=== PATIENT | female | born 1955 | race Caucasian/White ===

== ENCOUNTER 2018-01-10 13:15 | Observation (INO) ==
[2018-01-10 13:57] LABS: Bilirubin,Urine Negative (Negative); Blood,Urine Negative (Negative); Clarity,Urine Clear (Clear); Color,Urine Yellow (Yellow); Glucose,Urine (UA) 250 mg/dL (Normal); Ketones,Urine Negative (Negative); Leukocyte Esterase,Urine Negative (Negative); Nitrite,Urine Negative (Negative); PH,Urine 6.5 pH Units (5.0-8.0); Protein,Urine Negative (Neg-Trace); Specific Gravity,Urine 1.006 (1.010-1.025); Urobilinogen,Urine Normal (Normal)
[2018-01-10 14:56] LABS: Basophils % 0.3 %; Eosinophils % 0.4 %; Hematocrit 41.3 % (35.3-44.9); Immature Granulocytes % 0.4 % (0-4); Lymphocytes # 2.5 K/mcL (0.6-4.6); Lymphocytes % 22.9 %; Mean Corpuscular HGB Conc 33.9 g/dL (31.6-35.5); Mean Corpuscular Hemoglobin 30.6 pg (28.0-33.3); Mean Corpuscular Volume 90.4 fL (83.0-100.0); Mean Platelet Volume 9.3 fL (9.4-12.4); Monocytes # 0.7 K/mcL (0.0-1.3); Monocytes % 6.9 %; Neutrophils # 7.4 K/mcL (1.6-8.9); Platelet Count 248 K/mcL (140-400); Red Blood Count 4.57 M/mcL (3.82-4.97); Red Cell Distribution Width 12.5 % (11.5-14.5); Segmented Neutrophils % 69.1 %
[2018-01-10] MEDS ORDERED: *HR* FentaNYL (PF) 100 MCG/2 ML VIAL IVP ONE ×2 (15:19→20:36)
[2018-01-10 15:22] LABS: Troponin I < 0.03 ng/mL (< 0.04)
--- NOTE | 2018-01-10 15:30 | Emergency Department Note ---
Disposition Clinical Impression: Acute cholecystitis Abdominal pain Qualifiers: Abdominal location: right upper quadrant Qualified Code(s): R10.11 - Right upper quadrant pain Disposition: Admitted As Inpatient Condition: Fair Referrals: Anselmo Borrero DO [Primary Care Provider] - Forms: ED Satisfaction Letter, Work/School Release Time of Disposition: 06:20 General Adult HPI - General Chief complaint: ED Abdominal Pain Stated complaint: back pain, vomiting Time Seen by Provider: 01/10/18 13:38 Source: patient Limitations: no limitations Nursing Notes Reviewed: Yes Vital Signs Reviewed: Yes - History of Present Illness HPI Narrative: Patient is a 62 yo white female who presents to the ED with complaints of nausea , vomiting, and right upper abdominal pain. She states the pain began on Wednesday and has remained intermittently sharp but dull otherwise. The pain radiates to her right shoulder blade. She notes she had similar pain last week which resolved after a few hours. The pain has no aggravating factors and has not resolved through the use of ibuprofen or tylenol. She otherwise admits intermittent chest pain, trouble breathing , headache and constipation. She admits the chest pain and shortness of breath feels similar to anxiety due to the pain and do not feel similar to her episode of ARDS or A. fib. She denies any fever, chills, dysuria, hematuria, diarrhea. Pain Scale: 8 - Related Data Home Medications Medication Instructions Recorded Confirmed FLUoxetine HCl [PROzac] 20 mg PO DAILY 01/15/16 01/10/18 Ferrous Sulfate 325 mg PO DAILY 01/15/16 01/10/18 L. Acidophilus/Pectin, [place] 1 cap PO DAILY 01/15/16 01/10/18 [Acidophilus Probiotic Capsule] Pantoprazole Sodium [Protonix] 40 mg PO DAILY 01/15/16 01/10/18 Aspirin [Lo-Dose Aspirin EC] 81 mg PO DAILY 01/10/18 01/10/18 Losartan Potassium [Cozaar] 50 mg PO DAILY 01/10/18 01/10/18 dilTIAZem HCl [Diltiazem 24Hr Cd] 120 mg PO DAILY 01/10/18 01/10/18 Allergies Allergy/AdvReac Type Severity Reaction Status Date / Time No Known Allergies Allergy Verified 01/10/18 13:25 Constitutional: Denies: fever, chills, weakness, weight change Eyes: Reports: eye pain, vision change Cardiovascular: Reports: chest pain. Denies: palpitations, dyspnea on exertion , edema, syncope Respiratory: Reports: as per HPI. Denies: cough, dyspnea, wheezes, hemoptysis, stridor Gastrointestinal: Reports: abdominal pain, nausea, vomiting, constipation. Denies: diarrhea, hematemesis, melena, hematochezia Genitourinary: Denies: dysuria, frequency, hematuria, discharge Musculoskeletal: Reports: back pain. Denies: arthralgia, myalgia Integumentary: Denies: rash, abrasion, lesions Neurological: Reports: headache, paresthesias. Denies: weakness, numbness, vertigo Psychiatric: Reports: anxiety, homicidal thoughts. Denies: depression, suicidal thoughts Endocrine: Denies: fatigue Past Medical History - Past Medical History Source: patient Medical history: Reports: COPD, coronary artery disease, DVT, GERD, hypertension Surgical history: Reports: other Psychiatric history: Reports: anxiety, depression - Social History Smoking Status: Never smoker Alcohol use: Reports: rarely Drug use: Reports: none Physical Exam - General Limitations: no limitations General appearance: alert, anxious - Head Head exam: atraumatic, normocephalic, normal inspection - Eye Eye exam: Present: normal appearance, PERRL, EOMI - ENT ENT exam: normal exam, mucous membranes moist - Chest Chest inspection: Present: normal inspection. Absent: tenderness, rash - Respiratory Respiratory exam: Present: normal lung sounds bilaterally. Absent: respiratory distress, wheezes, stridor - Cardiovascular Cardiovascular exam: Present: regular rate, normal rhythm, normal heart sounds - Abdominal Exam Abdominal exam: Present: soft, tenderness, normal bowel sounds, Moreno's sign. Absent: distention, guarding, rebound Abdominal tenderness: Present: RUQ - Extremities Exam Extremities exam: Present: normal inspection. Absent: pedal edema - Back Exam Back exam: Present: normal inspection (Weakness) - Neurological Exam Neurological exam: Present: alert, oriented X3 ( he underwent) - Psychiatric Psychiatric exam: Present: normal affect, normal mood, anxious - Skin Skin exam: Present: warm, dry, intact. Absent: rash Course Course Narrative: All patient's initial presentation of chest pain, shortness of breath, abdominal pain, nausea and therefore CBC, lipase, BMP, liver panel, UA and chest x-ray were ordered. - Reevaluation(s) Reevaluation #1: Discussed test results with patient including CBC, BMP, SEIS[employer] PROSPECTING OBSERVER HELPER, lipase, troponin, and BNP. Awaiting formal ultrasound. Time: 16:20 Reevaluation #2: spoke with general surgeon, Dr. Lam who accepts the patient. Time: 06:20 Vital Signs Temperature 98.1 F 01/10/18 13:22 Pulse Rate 68 01/10/18 13:22 Respiratory Rate 18 01/10/18 13:22 Blood Pressure 162/77 01/10/18 13:22 O2 Sat by Pulse Oximetry 97 01/10/18 13:22 Temperature 98.1 F 01/10/18 13:22 Pulse Rate 70 01/10/18 18:56 Respiratory Rate 20 01/10/18 18:56 Blood Pressure 193/102 01/10/18 18:56 O2 Sat by Pulse Oximetry 97 01/10/18 18:56 Oxygen Delivery Oxygen Delivery Room Air Medical Decision Making - MDM Narrative Medical decision making narrative: Patient is a 62-year-old woman initially presented with nausea vomiting and right upper quadrant pain with radiation to the right shoulder blade for the past few days. She also admitted some chest pain and shortness of breath which she attributed to anxiety. CBC, lipase, troponin, BNP were unremarkable. BMP revealed elevated alkaline phosphatase at 111. Chest x-ray was unremarkable as well as EKG. Initial right upper quadrant ultrasound revealed cholelithiasis and mild gallbladder wall thickening without evidence of pericholecystic fluid. CT abdomen with IV contrast was ordered which revealed cholelithiasis and pericholecystic fluid consistent with acute cholecystitis. Dr. Lam, general surgery agrees to admit the patient. - Medical Records Medical records reviewed: Yes I reviewed the patient's medical records. - Lab Data Lab results reviewed: Yes I reviewed the patient's lab results. Result diagrams: 01/10/18 14:41 01/10/18 14:41 Lab Results 01/10/18 01/10/18 01/10/18 Range/Units 13:37 14:41 14:41 WBC 10.7 (4.3-11.1) K/mcL RBC 4.57 (3.82-4.97) M/mcL Hgb 14.0 (11.5-15.4) g/dL Hct 41.3 (35.3-44.9) % MCV 90.4 (83.0-100.0) fL MCH 30.6 (28.0-33.3) pg MCHC 33.9 (31.6-35.5) g/dL RDW 12.5 (11.5-14.5) % Plt Count 248 (140-400) K/mcL MPV 9.3 L (9.4-12.4) fL Immature Gran % 0.4 (0-4) % Seg Neutrophils % 69.1 % Lymphocytes % 22.9 % Monocytes % 6.9 % Eosinophils % 0.4 % Basophils % 0.3 % Neutrophils # 7.4 (1.6-8.9) K/mcL Lymphocytes # 2.5 (0.6-4.6) K/mcL Monocytes # 0.7 (0.0-1.3) K/mcL Eosinophils # 0.0 (0.0-0.6) K/mcL Basophils # 0.0 (0.0-0.2) K/mcL Sodium 136 (136-145) mEq/L Potassium 3.9 (3.5-5.1) mEq/L Chloride 103 (98-107) mEq/L Carbon Dioxide 25 (23-29) mEq/L BUN 14 (8-23) mg/dL Creatinine 0.93 (0.60-1.20) mg/dL Est GFR ( Amer) > 60 (> 60) Est GFR (Non-Af Amer) > 60 (> 60) BUN/Creatinine Ratio 15 (6-26) Glucose 138 H (70-105) mg/dL Calculated Osmolality 285 (280-300) Lactic Acid (0.5-2.2) mmol/L Calcium 9.4 (8.6-10.3) mg/dL Total Bilirubin 0.5 (0.3-1.0) mg/dL Direct Bilirubin 0.1 (0.0-0.2) mg/dL Indirect Bilirubin 0.4 (0.0-1.2) mg/dL AST 11 L (13-39) Units/L ALT 10 (7-52) Units/L Alkaline Phosphatase 111 H (34-104) Units/L Troponin I < 0.03 (< 0.04) ng/mL B-Natriuretic Peptide (Less than 100) pg/mL Serum Total Protein 7.7 (6.4-8.9) g/dL Albumin 4.1 (3.5-5.7) g/dL Globulin 3.6 H (2.4-3.5) g/dL Albumin/Globulin Ratio 1.1 (1.1-2.2) Lipase 24 (11-82) Units/L Urine Color Yellow (Yellow) Urine Clarity Clear (Clear) Urine pH 6.5 (5.0-8.0) pH Units Ur Specific [place] 1.006 L (1.010-1.025) Urine Protein Negative (Neg-Trace) mg/dL Urine Glucose (UA) 250 H (Normal) mg/dL Urine Ketones Negative (Negative) mg/dL Urine Blood Negative (Negative) Urine Nitrite Negative (Negative) Urine Bilirubin Negative (Negative) Urine Urobilinogen Normal (Normal) mg/dL Ur Leukocyte Esterase Negative (Negative) Ur Culture Indicated? NO (NO) 01/10/18 01/10/18 Range/Units 14:41 14:41 WBC (4.3-11.1) K/mcL RBC (3.82-4.97) M/mcL Hgb (11.5-15.4) g/dL Hct (35.3-44.9) % MCV (83.0-100.0) fL MCH (28.0-33.3) pg MCHC (31.6-35.5) g/dL RDW (11.5-14.5) % Plt Count (140-400) K/mcL MPV (9.4-12.4) fL Immature Gran % (0-4) % Seg Neutrophils % % Lymphocytes % % Monocytes % % Eosinophils % % Basophils % % Neutrophils # (1.6-8.9) K/mcL Lymphocytes # (0.6-4.6) K/mcL Monocytes # (0.0-1.3) K/mcL Eosinophils # (0.0-0.6) K/mcL Basophils # (0.0-0.2) K/mcL Sodium (136-145) mEq/L Potassium (3.5-5.1) mEq/L Chloride (98-107) mEq/L Carbon Dioxide (23-29) mEq/L BUN (8-23) mg/dL Creatinine (0.60-1.20) mg/dL Est GFR ( Amer) (> 60) Est GFR (Non-Af Amer) (> 60) BUN/Creatinine Ratio (6-26) Glucose (70-105) mg/dL Calculated Osmolality (280-300) Lactic Acid 1.0 (0.5-2.2) mmol/L Calcium (8.6-10.3) mg/dL Total Bilirubin (0.3-1.0) mg/dL Direct Bilirubin (0.0-0.2) mg/dL Indirect Bilirubin (0.0-1.2) mg/dL AST (13-39) Units/L ALT (7-52) Units/L Alkaline Phosphatase (34-104) Units/L Troponin I (< 0.04) ng/mL B-Natriuretic Peptide 43 (Less than 100) pg/mL Serum Total Protein (6.4-8.9) g/dL Albumin (3.5-5.7) g/dL Globulin (2.4-3.5) g/dL Albumin/Globulin Ratio (1.1-2.2) Lipase (11-82) Units/L Urine Color (Yellow) Urine Clarity (Clear) Urine pH (5.0-8.0) pH Units Ur Specific [place] (1.010-1.025) Urine Protein (Neg-Trace) mg/dL Urine Glucose (UA) (Normal) mg/dL Urine Ketones (Negative) mg/dL Urine Blood (Negative) Urine Nitrite (Negative) Urine Bilirubin (Negative) Urine Urobilinogen (Normal) mg/dL Ur Leukocyte Esterase (Negative) Ur Culture Indicated? (NO) - Radiology Data Radiology results reviewed: Yes I reviewed the patient's radiology results. Chest X-Ray 01/10/18 13:26 IMPRESSION: No acute cardiopulmonary disease. D/ / 01/10/2018 14:18:43 Tan Espinosa MD / [facility] Interpreting Provider: Tan Espinosa MD Gallbladder Ultrasound 01/10/18 16:11 IMPRESSION: Cholelithiasis with mild thickening of the gallbladder wall. Consider HIDA scan for further evaluation. D/ / Brett Quintero MD / Brett Quintero MD Interpreting Provider: Brett Quintero MD Chest X-Ray 01/10/18 13:26 IMPRESSION: No acute cardiopulmonary disease. D/ / 01/10/2018 14:18:43 Tan Espinosa MD / [facility] Interpreting Provider: Tan Espinosa MD Gallbladder Ultrasound 01/10/18 16:11 IMPRESSION: Cholelithiasis with mild thickening of the gallbladder wall. Consider HIDA scan for further evaluation. D/ / Brett Quintero MD / Brett Quintero MD Interpreting Provider: Brett Quintero MD Abdomen/Pelvis CT 01/10/18 17:53 IMPRESSION: CT findings compatible with acute cholecystitis. D/ / Brett Quintero MD / Brett Quintero MD Interpreting Provider: Brett Quintero MD - EKG Data EKG #1 EKG attestation: Yes I reviewed and interpreted this EKG. EKG results narrative: Heart rate 64 bpm, [place] interval 125, QRS 89, QT 410. Normal axis. Sinus rhythm no acute ST elevations or depressions. When compared to previous from 10/13/16 no significant changes.
[2018-01-10 15:36] LABS: Alanine Aminotransferase 10 Units/L (7-52); Albumin 4.1 g/dL (3.5-5.7); Albumin/Globulin Ratio 1.1 (1.1-2.2); Alkaline Phosphatase 111 Units/L (34-104); Aspartate Amino Transferase 11 Units/L (13-39); BUN/Creatinine Ratio 15 (6-26); Bilirubin,Direct 0.1 mg/dL (0.0-0.2); Bilirubin,Indirect 0.4 mg/dL (0.0-1.2); Bilirubin,Total 0.5 mg/dL (0.3-1.0); Blood Urea Nitrogen 14 mg/dL (8-23); Calcium 9.4 mg/dL (8.6-10.3); Carbon Dioxide 25 mEq/L (23-29); Chloride 103 mEq/L (98-107); Globulin 3.6 g/dL (2.4-3.5); Glucose 138 mg/dL (70-105); Lipase 24 Units/L (11-82); Osmolality,Calculated 285 (280-300); Potassium 3.9 mEq/L (3.5-5.1); Sodium 136 mEq/L (136-145); Total Protein 7.7 g/dL (6.4-8.9); eGFR For African Americans > 60 (> 60); eGFR For Non-African Americans > 60 (> 60)
--- NOTE | 2018-01-10 15:47 | Emergency Department Note ---
Disposition Clinical Impression: Acute cholecystitis Abdominal pain Qualifiers: Abdominal location: right upper quadrant Qualified Code(s): R10.11 - Right upper quadrant pain Disposition: Admitted As Inpatient Condition: Fair Prescriptions: cefOXitin [Mefoxin] 2,000 mg IVPB Q8HR #1 vial dilTIAZem HCl [Diltiazem 24Hr ER] 120 mg PO DAILY #1 cap.er.24h Referrals: Anselmo Borrero DO [Primary Care Provider] - Abdominal Pain HPI - General Chief Complaint: ED Abdominal Pain Stated Complaint: back pain, vomiting Time Seen by Provider: 01/10/18 13:38 Source: patient - History of Present Illness Pain Scale: 8 - Related Data Home Medications Medication Instructions Recorded Confirmed FLUoxetine HCl [PROzac] 20 mg PO DAILY 01/15/16 01/10/18 Ferrous Sulfate 325 mg PO DAILY 01/15/16 01/10/18 L. Acidophilus/Pectin, [place] 1 cap PO DAILY 01/15/16 01/10/18 [Acidophilus Probiotic Capsule] Pantoprazole Sodium [Protonix] 40 mg PO DAILY 01/15/16 01/10/18 Aspirin [Lo-Dose Aspirin EC] 81 mg PO DAILY 01/10/18 01/10/18 Losartan Potassium [Cozaar] 50 mg PO DAILY 01/10/18 01/10/18 dilTIAZem HCl [Diltiazem 24Hr Cd] 120 mg PO DAILY 01/10/18 01/10/18 Previous Rx's Medication Instructions Recorded cefOXitin [Mefoxin] 2,000 mg IVPB Q8HR #1 vial 01/10/18 dilTIAZem HCl [Diltiazem 24Hr ER] 120 mg PO DAILY #1 cap.er.24h 01/10/18 Allergies Allergy/AdvReac Type Severity Reaction Status Date / Time No Known Allergies Allergy Verified 01/10/18 13:25 Abdominal Pain PMH - Past Medical History Medical history: Reports: coronary artery disease, DVT, GERD, hypertension Female Surgical History: Reports: other Psychiatric history: Reports: anxiety, depression - Social History Smoking status: Never smoker Alcohol use: Reports: none Drug use: Reports: none Physical Exam - General Limitations: no limitations General appearance: alert, in no apparent distress Course Vital Signs Temperature 98.1 F 01/10/18 13:22 Pulse Rate 68 01/10/18 13:22 Respiratory Rate 18 01/10/18 13:22 Blood Pressure 162/77 01/10/18 13:22 O2 Sat by Pulse Oximetry 97 01/10/18 13:22 Temperature 97.9 F 01/10/18 21:37 Pulse Rate 66 01/10/18 21:37 Respiratory Rate 15 01/10/18 21:37 Blood Pressure 184/88 01/10/18 21:37 O2 Sat by Pulse Oximetry 98 01/10/18 21:37 Oxygen Delivery Oxygen Delivery Room Air Abdominal Pain - Lab Data Result diagrams: 01/10/18 14:41 01/10/18 14:41 Lab Results 01/10/18 01/10/18 01/10/18 Range/Units 13:37 14:41 14:41 WBC 10.7 (4.3-11.1) K/mcL RBC 4.57 (3.82-4.97) M/mcL Hgb 14.0 (11.5-15.4) g/dL Hct 41.3 (35.3-44.9) % MCV 90.4 (83.0-100.0) fL MCH 30.6 (28.0-33.3) pg MCHC 33.9 (31.6-35.5) g/dL RDW 12.5 (11.5-14.5) % Plt Count 248 (140-400) K/mcL MPV 9.3 L (9.4-12.4) fL Immature Gran % 0.4 (0-4) % Seg Neutrophils % 69.1 % Lymphocytes % 22.9 % Monocytes % 6.9 % Eosinophils % 0.4 % Basophils % 0.3 % Neutrophils # 7.4 (1.6-8.9) K/mcL Lymphocytes # 2.5 (0.6-4.6) K/mcL Monocytes # 0.7 (0.0-1.3) K/mcL Eosinophils # 0.0 (0.0-0.6) K/mcL Basophils # 0.0 (0.0-0.2) K/mcL Sodium 136 (136-145) mEq/L Potassium 3.9 (3.5-5.1) mEq/L Chloride 103 (98-107) mEq/L Carbon Dioxide 25 (23-29) mEq/L BUN 14 (8-23) mg/dL Creatinine 0.93 (0.60-1.20) mg/dL Est GFR ( Amer) > 60 (> 60) Est GFR (Non-Af Amer) > 60 (> 60) BUN/Creatinine Ratio 15 (6-26) Glucose 138 H (70-105) mg/dL Calculated Osmolality 285 (280-300) Lactic Acid (0.5-2.2) mmol/L Calcium 9.4 (8.6-10.3) mg/dL Total Bilirubin 0.5 (0.3-1.0) mg/dL Direct Bilirubin 0.1 (0.0-0.2) mg/dL Indirect Bilirubin 0.4 (0.0-1.2) mg/dL AST 11 L (13-39) Units/L ALT 10 (7-52) Units/L Alkaline Phosphatase 111 H (34-104) Units/L Troponin I < 0.03 (< 0.04) ng/mL B-Natriuretic Peptide (Less than 100) pg/mL Serum Total Protein 7.7 (6.4-8.9) g/dL Albumin 4.1 (3.5-5.7) g/dL Globulin 3.6 H (2.4-3.5) g/dL Albumin/Globulin Ratio 1.1 (1.1-2.2) Lipase 24 (11-82) Units/L Urine Color Yellow (Yellow) Urine Clarity Clear (Clear) Urine pH 6.5 (5.0-8.0) pH Units Ur Specific [place] 1.006 L (1.010-1.025) Urine Protein Negative (Neg-Trace) mg/dL Urine Glucose (UA) 250 H (Normal) mg/dL Urine Ketones Negative (Negative) mg/dL Urine Blood Negative (Negative) Urine Nitrite Negative (Negative) Urine Bilirubin Negative (Negative) Urine Urobilinogen Normal (Normal) mg/dL Ur Leukocyte Esterase Negative (Negative) Ur Culture Indicated? NO (NO) 01/10/18 01/10/18 Range/Units 14:41 14:41 WBC (4.3-11.1) K/mcL RBC (3.82-4.97) M/mcL Hgb (11.5-15.4) g/dL Hct (35.3-44.9) % MCV (83.0-100.0) fL MCH (28.0-33.3) pg MCHC (31.6-35.5) g/dL RDW (11.5-14.5) % Plt Count (140-400) K/mcL MPV (9.4-12.4) fL Immature Gran % (0-4) % Seg Neutrophils % % Lymphocytes % % Monocytes % % Eosinophils % % Basophils % % Neutrophils # (1.6-8.9) K/mcL Lymphocytes # (0.6-4.6) K/mcL Monocytes # (0.0-1.3) K/mcL Eosinophils # (0.0-0.6) K/mcL Basophils # (0.0-0.2) K/mcL Sodium (136-145) mEq/L Potassium (3.5-5.1) mEq/L Chloride (98-107) mEq/L Carbon Dioxide (23-29) mEq/L BUN (8-23) mg/dL Creatinine (0.60-1.20) mg/dL Est GFR ( Amer) (> 60) Est GFR (Non-Af Amer) (> 60) BUN/Creatinine Ratio (6-26) Glucose (70-105) mg/dL Calculated Osmolality (280-300) Lactic Acid 1.0 (0.5-2.2) mmol/L Calcium (8.6-10.3) mg/dL Total Bilirubin (0.3-1.0) mg/dL Direct Bilirubin (0.0-0.2) mg/dL Indirect Bilirubin (0.0-1.2) mg/dL AST (13-39) Units/L ALT (7-52) Units/L Alkaline Phosphatase (34-104) Units/L Troponin I (< 0.04) ng/mL B-Natriuretic Peptide 43 (Less than 100) pg/mL Serum Total Protein (6.4-8.9) g/dL Albumin (3.5-5.7) g/dL Globulin (2.4-3.5) g/dL Albumin/Globulin Ratio (1.1-2.2) Lipase (11-82) Units/L Urine Color (Yellow) Urine Clarity (Clear) Urine pH (5.0-8.0) pH Units Ur Specific [place] (1.010-1.025) Urine Protein (Neg-Trace) mg/dL Urine Glucose (UA) (Normal) mg/dL Urine Ketones (Negative) mg/dL Urine Blood (Negative) Urine Nitrite (Negative) Urine Bilirubin (Negative) Urine Urobilinogen (Normal) mg/dL Ur Leukocyte Esterase (Negative) Ur Culture Indicated? (NO) Attestation Statement - Attestation Attestation: I examined this patient and my medical decision-making was reviewed with the Resident Physician. I agree with the documented findings, disposition and treatment plan as described except to the extent set forth below. 62 yo F presents with pain to the RUQ and epigastrum. present x1.5 wks intermittently. Unsure if correllated with food. denies trauma, chest pain, SOB, fever, chills. +multiple episodes of n/v throughout the week. +hx of reflux but denies GB disease in past. +pain to RUQ with palpation. Abdomen is otherwise soft without rigidity, guarding or rebound. ECG does not show STEMI. US and lab eval pending. Ultrasound showed cholelithiasis with gallbladder wall thickening. Radiologist recommended HIDA scan. CT of the abdomen and pelvis showed acute cholecystitis but did not show other acute abnormality. Resident spoke with the general surgeon, Dr. Lam who agreed with plan for admission to the hospital.
[2018-01-10] MEDS ORDERED: Isovue-370 500 ML INFUS..BTL IV ONE (17:53)
[2018-01-10] MEDS ORDERED: Hyoscyamine 0.5 MG/ML MLS IVP ONE (18:46)
[2018-01-10] MEDS ORDERED: Morphine Oral CONC 5 MG/0.25 ML ORAL.SYG PO PRN (22:28)
[2018-01-10] MEDS ORDERED: Ondansetron 4 MG/2 ML VIAL IVP PRN (22:28)
[2018-01-11] MEDS ORDERED: MORPHINE SUL Oral CONC 10 MG/0.5 ML ORAL.SYG SL PRN ×2 (00:45→15:42)
[2018-01-11] MEDS: cefOXitin 2,000 MG in Water for inj. (sterile) 20 ML 20 ML IVP SCH ×3 (01:17→19:22)
[2018-01-11] MEDS: 0.9 % Sodium Chloride 1,000 ML IVC SCH ×4 (01:33→19:22)
[2018-01-11] MEDS ORDERED: *HR* Metoprolol 5 MG/5 ML VIAL IVP PRN ×2 (06:41→17:50)
[2018-01-11] MEDS ORDERED: Naloxone 0.4 MG/ML INJ IVP PRN ×2 (06:41→17:50)
[2018-01-11] MEDS ORDERED: OXYCODONE Oral CONC 10 MG/0.5 ML ORAL.SYG SL PRN ×2 (06:55→17:50)
[2018-01-11 07:20] LABS: Basophils % 0.3 %; Eosinophils % 0.1 %; Hematocrit 39.3 % (35.3-44.9); Hemoglobin 13.7 g/dL (11.5-15.4); Immature Granulocytes % 0.6 % (0-4); Lymphocytes # 2.3 K/mcL (0.6-4.6); Lymphocytes % 15.8 %; Mean Corpuscular HGB Conc 34.9 g/dL (31.6-35.5); Mean Corpuscular Hemoglobin 30.9 pg (28.0-33.3); Mean Corpuscular Volume 88.7 fL (83.0-100.0); Mean Platelet Volume 9.7 fL (9.4-12.4); Monocytes # 0.8 K/mcL (0.0-1.3); Monocytes % 5.4 %; Neutrophils # 11.2 K/mcL (1.6-8.9); Platelet Count 242 K/mcL (140-400); Red Blood Count 4.43 M/mcL (3.82-4.97); Red Cell Distribution Width 12.6 % (11.5-14.5); Segmented Neutrophils % 77.8 %
[2018-01-11] MEDS ORDERED: Acetaminophen IV 1,000 MG/100 ML INFUS..BTL IVPB PRN (07:20)
[2018-01-11] MEDS ORDERED: Ketorolac 30 MG/ML VIAL IVP ONE (07:25)
[2018-01-11] MEDS: OXYCODONE Oral CONC 10 MG/0.5 ML ORAL.SYG SL PRN ×3 (07:27→18:37)
--- NOTE | 2018-01-11 08:17 | General Surg History&Physical ---
<Ghulam Broussard W - Last Filed: 01/11/18 08:57> Date of Encounter: 01/11/18 Time of Encounter: 08:55 Assessment and Plan (1) Acute cholecystitis Current Visit: Yes Status: Acute Radiographic imaging findings, history and physical consistent with acute cholecysitits Surgical intervention recommended within the next 24-48 hours NPO IV fluids and Antibiotics supportive care and pain management The assessment and plan as outlined above was discussed with the patient and/or family members who expressed understanding and agreement. All questions were answered. (2) Abdominal pain Current Visit: Yes Status: Acute see above plan The assessment and plan as outlined above was discussed with the patient and/or family members who expressed understanding and agreement. All questions were answered. Qualifiers: Abdominal location: right upper quadrant Qualified Code(s): R10.11 - Right upper quadrant pain (3) GERD (gastroesophageal reflux disease) Current Visit: Yes Status: Chronic manage with Protonix The assessment and plan as outlined above was discussed with the patient and/or family members who expressed understanding and agreement. All questions were answered. Qualifiers: Esophagitis presence: without esophagitis Qualified Code(s): K21.9 - Gastro -esophageal reflux disease without esophagitis (4) HTN (hypertension) Current Visit: No Status: Chronic monitor and manage BP accordingly The assessment and plan as outlined above was discussed with the patient and/or family members who expressed understanding and agreement. All questions were answered. Qualifiers: Hypertension type: essential hypertension Qualified Code(s): I10 - Essential (primary) hypertension History of Present Illness Chief complaint: Acute Cholecystitis HPI: Ms. Tran is a 62 year old female 62 yo F with a past medical history of hiatal hernia, A-fib, and GERD presented to the ED with epigastric and RUQ pain. the pain began 12/10/18 and she has had several episodes of nausea and vomiting since then, no hematemesis. About 10 days ago the patient had a similar pain with 1-3 episodes of vomiting but the pain resolved with OTC pain medications and rest. patient is unsure if the pain correlates with food. Currently the pain is severe. patient is unable to get comfortable. Last BM was yesterday it was small no diarrhea or blood noted. Ultrasound showed cholelithiasis with gallbladder wall thickening. Radiologist recommended HIDA scan. CT of the abdomen and pelvis showed acute cholecystitis but did not show other acute abnormality. Past Med Surg Social Fam HX - Past Medical History Medical history: coronary artery disease, DVT, GERD, hypertension Additional medical history: ARDS, Psychiatric history: anxiety, depression - Past Surgical History Surgical History: other Additional surgical history: 2 back surgeries, tmj surgery, ards - Social History Smoking Status: Never smoker Alcohol use: none Drug use: none - Family History Mother Living Status: Hx Family Cardiac Disorders: Yes Medications and Allergies FLUoxetine HCl [PROzac] 20 mg PO DAILY 01/15/16 [History] Ferrous Sulfate 325 mg PO DAILY 01/15/16 [History] L. Acidophilus/Pectin, [place] [Acidophilus Probiotic Capsule] 1 cap PO DAILY [History] Pantoprazole Sodium [Protonix] 40 mg PO DAILY 01/15/16 [History] Aspirin [Lo-Dose Aspirin EC] 81 mg PO DAILY 01/10/18 [History] Losartan Potassium [Cozaar] 50 mg PO DAILY 01/10/18 [History] cefOXitin [Mefoxin] 2,000 mg IVPB Q8HR #1 vial 01/10/18 [Rx] dilTIAZem HCl [Diltiazem 24Hr Cd] 120 mg PO DAILY 01/10/18 [History] dilTIAZem HCl [Diltiazem 24Hr ER] 120 mg PO DAILY #1 cap.er.24h 01/10/18 [Rx] 3 Allergy/AdvReac Type Severity Reaction Status Date / Time No Known Allergies Allergy Verified 01/10/18 13:25 Review of Systems All systems PM: The remainder of the systems were reviewed and are negative - Constitutional no chills, no fever(s), no night sweats - EENT Nose, mouth and throat: no dysphagia - Cardiovascular no chest pain, no dyspnea on exertion - Respiratory no cough, no dyspnea on exertion - Gastrointestinal as per HPI - Genitourinary Genitourinary: no change in urinary stream, no dysuria - Musculoskeletal no limited range of motion - Neurological no abnormal movements - Psychiatric anxiety, depression General Surgery Exam Initial Vital Signs Temp Pulse Resp BP Pulse Ox 98.1 F 68 18 162/77 97 01/10/18 13:22 01/10/18 13:22 01/10/18 13:22 01/10/18 13:22 01/10/18 13:22 - General physical appearance moderate distress, severe pain, obese - Eyes normal ocular movement - ENT normal mucosa, no hearing loss - Neck no masses - Respiratory normal expansion, normal respiratory effort, clear to percussion, clear to auscultation - Cardiovascular Cardiovascular exam: Present: RRR, no murmurs/rubs/gallops - Abdomen Abdomen general surgery: Present: bowel sounds present, tender Abdominal Tenderness: Present: epigastic (+ murphys sign), RUQ - Integumentary Integumentary general surgery: Present: warm and dry, no abnormal pigmentation - Neurologic Present: CN 2-12 grossly intact - Psychiatric Psychiatric general surgery: Present: appropriate, oriented to person, oriented to place Results - Labs 01/11/18 07:00 01/10/18 14:41 Abnormal lab results WBC 14.3 K/mcL (4.3-11.1) H 01/11/18 07:00 Neutrophils # 11.2 K/mcL (1.6-8.9) H 01/11/18 07:00 Glucose 138 mg/dL (70-105) H 01/10/18 14:41 POC Glucose 142 mg/dL (70-99) H 01/11/18 05:21 AST 11 Units/L (13-39) L 01/10/18 14:41 Alkaline Phosphatase 111 Units/L (34-104) H 01/10/18 14:41 Globulin 3.6 g/dL (2.4-3.5) H 01/10/18 14:41 Ur Specific [place] 1.006 (1.010-1.025) L 01/10/18 13:37 Urine Glucose (UA) 250 mg/dL (Normal) H 01/10/18 13:37 All other labs normal. - Imaging CT scan - abdomen: report reviewed CT scan - pelvis: report reviewed <Norma Lam - Last Filed: 01/11/18 15:23> Date of Encounter: 01/11/18 Assessment and Plan (1) Leukocytosis Current Visit: Yes Status: Acute The assessment and plan as outlined above was discussed with the patient and/or family members who expressed understanding and agreement. All questions were answered. continue antibiotics Qualifiers: Leukocytosis type: unspecified Qualified Code(s): D72.829 - Elevated white blood cell count, unspecified (2) Acute cholecystitis Current Visit: Yes Status: Acute The assessment and plan as outlined above was discussed with the patient and/or family members who expressed understanding and agreement. All questions were answered. Patient had US which showed likely acute cholecystitis, discussed imaging, labs , PE findings, will plan laparoscopic cholecystectomy, possible cholangiograms, possible open, risks and benefits discussed and she wishes to proceed wbc elevated this am CT shows likely emphysematous cholecystitis npo ivf hydration prn pain control gi/dvt prophylaxis History of Present Illness HPI: Ms. Tran is a 62 year old female who started having sharp RUQ pain that was stabbing radiated into her back and right shoulder.The pain has wax and waned but there is alwsys a persistent ache present. She had nausea and vomiting but now is nauseated with dry heaves. She has no diarrhea. She had a similar episode a week and a half ago. This episode only lasted an hour and she had nausea and emesis as well. She has no fevers, chills or night sweats. She states in 2013 she had a blood clot to her colon but did not require a colon resection but went into ARDS, Afib and was in a coma for a time. Past Med Surg Social Fam HX - Past Medical History Source: patient Medical history: atrial fibrillation, COPD, coronary artery disease, DVT, GERD, hypertension Psychiatric history: anxiety, depression - Social History Alcohol use: none Drug use: none Current living situation: Home - Independent, With Family Activity Level: Independent ambulation Review of Systems All systems PM: reviewed and no additional remarkable complaints except as stated All systems PM: The remainder of the systems were reviewed and are negative General Surgery Exam Initial Vital Signs Temp Pulse Resp BP Pulse Ox 98.1 F 68 18 162/77 97 01/10/18 13:22 01/10/18 13:22 01/10/18 13:22 01/10/18 13:22 01/10/18 13:22 - General physical appearance well nourished, no distress, moderate distress - Eyes PERRL, normal ocular movement - ENT normal mucosa, normocephalic - Neck trachea midline - Respiratory normal expansion, normal respiratory effort - Cardiovascular Cardiovascular exam: Present: RRR - Abdomen Abdomen general surgery: Present: bowel sounds present, soft, tender, guarding. Absent: distended, rebound Abdominal Tenderness: Present: epigastic, RUQ - Integumentary Integumentary general surgery: Present: warm and dry - Neurologic Present: CN 2-12 grossly intact - Musculoskeletal Present: normal gait, normal posture - Psychiatric Psychiatric general surgery: Present: A&Ox3, speech is normal Results - Labs 01/11/18 07:00 01/11/18 08:59 Abnormal lab results WBC 14.3 K/mcL (4.3-11.1) H 01/11/18 07:00 Neutrophils # 11.2 K/mcL (1.6-8.9) H 01/11/18 07:00 Sodium 131 mEq/L (136-145) L 01/11/18 08:59 Glucose 159 mg/dL (70-105) H 01/11/18 08:59 POC Glucose 142 mg/dL (70-99) H 01/11/18 05:21 Calculated Osmolality 274 (280-300) L 01/11/18 08:59 Direct Bilirubin 0.3 mg/dL (0.0-0.2) H 01/11/18 08:59 AST 10 Units/L (13-39) L 01/11/18 08:59 Alkaline Phosphatase 111 Units/L (34-104) H 01/11/18 08:59 Ur Specific [place] 1.006 (1.010-1.025) L 01/10/18 13:37 Urine Glucose (UA) 250 mg/dL (Normal) H 01/10/18 13:37 Diabetes panel 01/11/18 Range/Units 08:59 Sodium 131 L (136-145) mEq/L Potassium 3.8 (3.5-5.1) mEq/L Chloride 100 (98-107) mEq/L Carbon Dioxide 24 (23-29) mEq/L BUN 10 (8-23) mg/dL Creatinine 0.83 (0.60-1.20) mg/dL Glucose 159 H (70-105) mg/dL Calcium 8.7 (8.6-10.3) mg/dL AST 10 L (13-39) Units/L ALT 8 (7-52) Units/L Alkaline Phosphatase 111 H (34-104) Units/L Albumin 3.7 (3.5-5.7) g/dL Calcium panel 01/11/18 Range/Units 08:59 Calcium 8.7 (8.6-10.3) mg/dL Albumin 3.7 (3.5-5.7) g/dL Pituitary panel 01/11/18 Range/Units 08:59 Sodium 131 L (136-145) mEq/L Potassium 3.8 (3.5-5.1) mEq/L Chloride 100 (98-107) mEq/L Carbon Dioxide 24 (23-29) mEq/L BUN 10 (8-23) mg/dL Creatinine 0.83 (0.60-1.20) mg/dL Glucose 159 H (70-105) mg/dL Calcium 8.7 (8.6-10.3) mg/dL Adrenal panel 01/11/18 Range/Units 08:59 Sodium 131 L (136-145) mEq/L Potassium 3.8 (3.5-5.1) mEq/L Chloride 100 (98-107) mEq/L Carbon Dioxide 24 (23-29) mEq/L BUN 10 (8-23) mg/dL Creatinine 0.83 (0.60-1.20) mg/dL Glucose 159 H (70-105) mg/dL Calcium 8.7 (8.6-10.3) mg/dL Total Bilirubin 0.9 (0.3-1.0) mg/dL AST 10 L (13-39) Units/L ALT 8 (7-52) Units/L Alkaline Phosphatase 111 H (34-104) Units/L Albumin 3.7 (3.5-5.7) g/dL All other labs normal. - Imaging CT scan - abdomen: report reviewed, image reviewed CT scan - pelvis: report reviewed, image reviewed US - abdomen: report reviewed - Attending Attestation I examined this patient and my medical decision-making was reviewed with the Resident Physician. I agree with the documented findings, disposition and treatment plan as described except to the extent set forth below.
[2018-01-11] MEDS: Acetaminophen IV 1,000 MG/100 ML INFUS..BTL IVPB SCH ×2 (08:44→12:24)
[2018-01-11] MEDS ORDERED: Diltiazem CD (24hr) 120 MG CAPSULE PO SCH (09:00)
[2018-01-11] MEDS ORDERED: FLUoxetine HCl Oral Soln 20 MG/5 ML UDC PO SCH (09:00)
[2018-01-11] MEDS ORDERED: Pantoprazole 40 MG VIAL IVP SCH (09:00)
[2018-01-11 10:08] LABS: Alanine Aminotransferase 8 Units/L (7-52); Albumin 3.7 g/dL (3.5-5.7); Albumin/Globulin Ratio 1.2 (1.1-2.2); Alkaline Phosphatase 111 Units/L (34-104); Aspartate Amino Transferase 10 Units/L (13-39); BUN/Creatinine Ratio 12 (6-26); Bilirubin,Direct 0.3 mg/dL (0.0-0.2); Bilirubin,Indirect 0.6 mg/dL (0.0-1.2); Bilirubin,Total 0.9 mg/dL (0.3-1.0); Blood Urea Nitrogen 10 mg/dL (8-23); Calcium 8.7 mg/dL (8.6-10.3); Carbon Dioxide 24 mEq/L (23-29); Chloride 100 mEq/L (98-107); Globulin 3.1 g/dL (2.4-3.5); Glucose 159 mg/dL (70-105); Osmolality,Calculated 274 (280-300); Potassium 3.8 mEq/L (3.5-5.1); Sodium 131 mEq/L (136-145); Total Protein 6.8 g/dL (6.4-8.9); eGFR For African Americans > 60 (> 60); eGFR For Non-African Americans > 60 (> 60)
--- NOTE | 2018-01-11 14:38 | Electrocardiograph Report ---
[facility] Test Date: 2018-01-10 Pat Name: Dlephine Tran Department: [id number] Room: 3A56 Gender: F Director Life: : 1955 Requested By: [id number] Order Number: [id number] Reading MD: Valdemar Ledesma Measurements Intervals [place] Rate: 64 P: 37 NH: 125 QRS: 1 QRSD: 89 T: 24 QT: 410 QTc: 419 Interpretive Statements SINUS RHYTHM INFERIOR MYOCARDIAL INFARCTION, PROBABLY OLD Electronically Signed On 01-11-2018 14:37:12 EDT by Valdemar Ledesma
--- NOTE | 2018-01-11 14:44 | Anesthesia Evaluation PreOp ---
Date of Encounter: 01/11/18 Time of Encounter: 14:41 - Past History Planned Operation: Lap. Indu. Cardiac History: Denies any Significant Hx (coronary artery disease, DVT, GERD, hypertension Additional medical history: ARDS, Psychiatric history: anxiety, depression - Past Surgical History Surgical History: other Additional surgical history: 2 back surgeries, tmj surgery, ards), HTN, Other ( Hx DVT) Pulmonary History: Other (ARDS) INFORMATION SYSTEMS ADMINISTRATOR History: Other (Anxiety/Depression) Other Medical History: GERD, Other (Obese) Anesthesia History: No Prior Anesthetic Complications, Past Anesthesia (2 back surgeries, tmj surgery,) : No Alcohol Use: none Drug use: none Medications and Allergies FLUoxetine HCl [PROzac] 20 mg PO DAILY 01/15/16 [History] Ferrous Sulfate 325 mg PO DAILY 01/15/16 [History] L. Acidophilus/Pectin, [place] [Acidophilus Probiotic Capsule] 1 cap PO DAILY [History] Pantoprazole Sodium [Protonix] 40 mg PO DAILY 01/15/16 [History] Aspirin [Lo-Dose Aspirin EC] 81 mg PO DAILY 01/10/18 [History] Losartan Potassium [Cozaar] 50 mg PO DAILY 01/10/18 [History] cefOXitin [Mefoxin] 2,000 mg IVPB Q8HR #1 vial 01/10/18 [Rx] dilTIAZem HCl [Diltiazem 24Hr Cd] 120 mg PO DAILY 01/10/18 [History] dilTIAZem HCl [Diltiazem 24Hr ER] 120 mg PO DAILY #1 cap.er.24h 01/10/18 [Rx] 3 Allergy/AdvReac Type Severity Reaction Status Date / Time No Known Allergies Allergy Verified 01/10/18 13:25 - Meds/Allergy Pre-op Review Medications Reviewed: Yes Allergies Reviewed: Yes Beta Blockers on Current Med List: No Anesthesia Results - Labs 01/11/18 07:00 01/11/18 08:59 Echocardiogram Name: Delphine Tran Date of Study: 01/16/2016 Impressions: LVEF 60-65%. Mild concentric left ventricular hypertrophy. Mild left ventricular diastolic dysfunction. Normal right ventricular structure and function. No evidence of pulmonary hypertension. No significant valvular dysfunction. - Imaging EKG: report reviewed (SINUS RHYTHM INFERIOR MYOCARDIAL INFARCTION, PROBABLY OLD) Anesthesia Exam Vital Signs/O2 Sat, Most Current Temp Pulse Resp BP Pulse Ox 98 F 69 14 147/79 95 01/11/18 11:39 01/11/18 11:39 01/11/18 11:39 01/11/18 11:39 01/11/18 11:39 NPO (# of Hours): > 8 hrs Pain Scale: 0 Pain Scale Used: Numeric (1 - 10) - HEENT Pupil (Motor): Pupils equal, EOMI Mallampati: III Teeth: Normal Oral Opening: Greater than 3 - INFORMATION SYSTEMS ADMINISTRATOR LOC: Oriented INFORMATION SYSTEMS ADMINISTRATOR Motor: Normal RUE, Normal LUE, Normal RLE, Normal LLE, Normal Face INFORMATION SYSTEMS ADMINISTRATOR Sensory: Normal: RUE, LUE, RLE, LLE, Face - Cardiac Rhythm: Regular Murmur: None JVD: No Carotid Bruit: No - Pulmonary Breath Sounds: bilateral Clear Respiratory Effort: Symmetrical Anesthesia Assess/Plan ASA Score: 3 Modified [place] Scale for Level of Consciousness: Cooperative, oriented, and tranquil Anesthetic Plan: General Autologous Blood: Yes Monitoring Plan: Standard Monitors Recovery Plan: PACU
[2018-01-11] MEDS ORDERED: Lidocaine -MPF 2% 2 ML VIAL ONE (15:05)
[2018-01-11] MEDS ORDERED: *HR* Midazolam HCl 2 MG/2 ML VIAL ONE (15:05)
[2018-01-11] MEDS ORDERED: Dexamethasone 4 MG/ML VIAL ONE (15:05)
[2018-01-11] MEDS ORDERED: Ketorolac 30 MG/ML VIAL ONE (15:05)
[2018-01-11] MEDS ORDERED: *HR* Rocuronium Bromide 50 MG/5 ML VIAL ONE (15:05)
[2018-01-11] MEDS ORDERED: *HR* Propofol 200 MG/20 ML VIAL IVP ONE (15:05)
[2018-01-11] MEDS ORDERED: *HR* FentaNYL (PF) 100 MCG/2 ML VIAL ONE (15:05)
[2018-01-11] MEDS ORDERED: Ondansetron 4 MG/2 ML VIAL ONE (15:05)
[2018-01-11] MEDS ORDERED: Isovue-300 50 ML VIAL IVP ONE (15:10)
[2018-01-11] MEDS ORDERED: Acetaminophen IV 1,000 MG/100 ML INFUS..BTL ONE (15:22)
[2018-01-11] MEDS ORDERED: CefOXitin 2,000 MG VIAL ONE (15:24)
[2018-01-11] MEDS ORDERED: *HR* HYDROmorphone (PF) 1 MG/ML SYRINGE IVP PRN (15:42)
[2018-01-11] MEDS ORDERED: *HR* Promethazine 25 MG/ML VIAL IVP PRN (15:42)
[2018-01-11] MEDS ORDERED: *HR* OxyCODONE Immed Rel 5 MG TABLET PO PRN (15:42)
[2018-01-11] MEDS ORDERED: *HR* Labetalol 20 MG/4 ML SYRINGE IVP PRN (15:42)
[2018-01-11] MEDS ORDERED: *HR* Phenylephrine 10 MG/ML VIAL ONE (15:43)
[2018-01-11] MEDS ORDERED: EPHEDrine 50 MG/ML VIAL ONE (15:45)
[2018-01-11] MEDS ORDERED: Neostigmine Methylsulfate 3 MG/3 ML SYRINGE ONE (16:29)
--- NOTE | 2018-01-11 16:50 | Operative Note ---
Date of procedure: 01/11/18 Pre-op diagnosis: acute cholecystitis Post-op diagnosis: same Procedure: Laparoscopic cholecystectomy Complications: none immediate Anesthesia: GETA, local Local Anesthetics: 0.5% Sensorcaine HCL SubQ (cc) Surgeon: Norma Lam Was there an clinical data assistant present: Yes Bobj Developer: Yudith Browne Estimated blood loss (cc): 20 Specimen: gallbladder and contents Condition: stable Disposition: PACU Procedure in Detail: The patient was brought into the operating suite and placed supine on the operating table. Sign-in was performed and everyone was in agreement. Anesthesia was induced and patient was endotracheally intubated by anesthesia without incident and they also placed an OG tube. The abdomen was prepped and draped in the usual sterile fashion. A timeout was performed again everyone was in agreement. A supraumbilical incision was made through the skin into the subcutaneous tissue with an 11 blade. Towel clamps were placed on either side of the umbilicus for retraction. S retractors were used to dissect down to the anterior abdominal wall linea alba fascia. A Veress needle was placed through this incision and a water drop test confirmed placement and the abdomen was insufflated. The abdomen was entered with a 5 mm 0 degree laparoscope on a 5 mm X-myra trocar. The area and entry was visualized was no bleeding and no apparent bowel injury. A 5 mm subxiphoid port was placed under direct visualization after first incising the skin with an 11 blade. A right upper quadrant subcostal position midclavicular line 5 mm port was placed under direct visualization after first incising skin with 11 blade. The laparoscope was placed in this and we exchanged the supraumbilical port for a 12 mm port under direct visualization. The last 5 mm port was placed in the right upper quadrant subcostal position anterior axillary line after first incising the skin with an 11 blade. The patient was placed in steep reverse Trendelenburg left side down position. The gallbladder was tendse with inflammation and was unable to be grasped. The gallbladder was aspirated with a laparoscopic aspiratory. The dome of the gallbladder was grasped and retracted cephalad. Omental adhesions to the body and infundibulum of the gallbladder were taken down bluntly with the [place]. The infundibulum was grasped and retracted laterally. There was a large stone at the infundibulum and a Kocker was needed to grasp the gallbladder. Using the [place] we dissected out the cystic duct and cystic artery. Two 5 mm hemoclips were placed distally on the cystic duct one proximally and it was transected with curved scissors. The cystic artery was doubly clipped proximally, once distally and transected with curved scissors. The gallbladder was removed off the cystic plate with the Bovie. Any bleeding points were stopped with the Bovie. The gallbladder was placed in a laparoscopic Endo Catch bag and removed via the supraumbilical incision site. The inferior edge of the liver was bluntly retracted cephalad and the cystic plate was copiously irrigated with sterile saline. The clips were intact and no obvious bile leak. There was some oozing on the cystic plate that was bovied, a large surgicel was placed at the cystic plate and a 15 F yadira drain was placed at the gallbladder fossa and secured to the skin with a 2-0 silk stitch. All irrigation was suctioned free from the abdomen. All insufflation was suctioned free from the abdomen and the ports removed. The abdominal wall at the supraumbilical incision site was closed with two 0 Vicryl [id number] stitches. 30 mL of 0.5% Marcaine was injected subcutaneously at the 4 port sites. The skin at the three 5 mm port sites were closed with 4-0 Monocryl interrupted subcuticular stitches. The skin at the supraumbilical incision site was closed with a 4-0 Monocryl running subcuticular stitch. Steri-Strips were applied to all wounds. The patient was awoken in the operating suite having tolerated the procedure well and were taken to PACU in stable condition after all lap and instrument counts were correct at the end of the case.
--- NOTE | 2018-01-11 17:16 | Anesthesia Evaluation Post Op ---
Date of Encounter: 01/11/18 Time of Encounter: 17:14 - Vital Signs Vital Signs: vss - Lungs Lungs: Clear Ascult./Percussion (enc IS usage) - Airway Airway: Non-obstructed - Mental Status Mental Status: Asleep with brisk response to light stimulation - Pain Pain Scale used: [place] (Faces) - Nausea Vomiting Nausea Vomiting: Not Present - Hydration Hydration: Ice chips - Discharge PostOp Status: Transfer Patient to floor
[2018-01-11] MEDS ORDERED: Ondansetron 4 MG/2 ML VIAL IVP PRN (17:50)
[2018-01-12] MEDS: cefOXitin 2,000 MG in Water for inj. (sterile) 20 ML 20 ML IVP SCH ×2 (00:04→08:27)
[2018-01-12] MEDS: Acetaminophen IV 1,000 MG/100 ML INFUS..BTL IVPB SCH ×3 (00:05→11:42)
[2018-01-12] MEDS: 0.9 % Sodium Chloride 1,000 ML IVC SCH ×2 (00:16→11:42)
[2018-01-12 06:51] LABS: Hematocrit 35.3 % (35.3-44.9); Hemoglobin 11.6 g/dL (11.5-15.4); Immature Granulocytes % 0.4 % (0-4); Lymphocytes # 0.9 K/mcL (0.6-4.6); Mean Corpuscular HGB Conc 32.9 g/dL (31.6-35.5); Mean Corpuscular Hemoglobin 30.3 pg (28.0-33.3); Mean Corpuscular Volume 92.2 fL (83.0-100.0); Mean Platelet Volume 9.5 fL (9.4-12.4); Monocytes # 0.2 K/mcL (0.0-1.3); Monocytes % 1.7 %; Platelet Count 214 K/mcL (140-400); Red Blood Count 3.83 M/mcL (3.82-4.97); Red Cell Distribution Width 12.9 % (11.5-14.5); Segmented Neutrophils % 90.9 %
[2018-01-12 07:07] LABS: Alanine Aminotransferase 29 Units/L (7-52); Albumin 3.3 g/dL (3.5-5.7); Alkaline Phosphatase 91 Units/L (34-104); Aspartate Amino Transferase 34 Units/L (13-39); BUN/Creatinine Ratio 14 (6-26); Bilirubin,Direct 0.1 mg/dL (0.0-0.2); Bilirubin,Indirect 0.4 mg/dL (0.0-1.2); Bilirubin,Total 0.5 mg/dL (0.3-1.0); Blood Urea Nitrogen 13 mg/dL (8-23); Calcium 8.7 mg/dL (8.6-10.3); Carbon Dioxide 22 mEq/L (23-29); Chloride 104 mEq/L (98-107); Globulin 3.2 g/dL (2.4-3.5); Glucose 175 mg/dL (70-105); Osmolality,Calculated 282 (280-300); Potassium 4.3 mEq/L (3.5-5.1); Sodium 134 mEq/L (136-145); Total Protein 6.5 g/dL (6.4-8.9); eGFR For African Americans > 60 (> 60); eGFR For Non-African Americans > 60 (> 60)
--- NOTE | 2018-01-12 08:21 | General Surgery Progress Note ---
Date of Encounter: 01/12/18 Time of Encounter: 08:20 - Assessment and Plan (1) Acute cholecystitis Current Visit: Yes Status: Acute Pt is recovering well from her laparoscopic cholecystectomy Cont to monitor pain control consider discharge with appropriate bowel motility and pain control encourage ambulation (2) Abdominal pain Current Visit: Yes Status: Acute See above plan Qualifiers: Abdominal location: right upper quadrant Qualified Code(s): R10.11 - Right upper quadrant pain (3) GERD (gastroesophageal reflux disease) Current Visit: Yes Status: Chronic Continue Protonix Qualifiers: Esophagitis presence: without esophagitis Qualified Code(s): K21.9 - Gastro -esophageal reflux disease without esophagitis (4) HTN (hypertension) Current Visit: No Status: Chronic Continue home medications Qualifiers: Hypertension type: essential hypertension Qualified Code(s): I10 - Essential (primary) hypertension Subjective Patient reports: no new complaints, feels better, pain is less, no flatus, no bowel movement, afebrile Narrative: Patient's report she is feeling well after her surgery yesterday. Her pain is under control and she is able to sleep well last night. Patient only has mild discomfort around her incisions and mild generalized abdominal discomfort. Patient has not had a BM or flatus since the surgery but has been able to void without difficulty. Objective Vital Signs - Last 8 Hours Temp Pulse Resp BP Pulse Ox 01/12/18 07:39 97.7 F 72 14 135/72 94 01/12/18 04:12 98.0 F 79 18 123/77 94 Intake and Output 01/11/18 01/12/18 01/12/18 23:59 07:59 15:59 Intake Total 1220 / 1220 Output Total 20 30 / 30 Balance -20 / -20 1190 / 1190 Intake: IV Fluids 1220 / 1220 0.9 % Sodium Chloride 1,000 ML 1000 / 1000 @ 100 mls/hr IVC .Q10H G[facility] Rx#: [id number] Mefoxin 2,000 MG In Water for inj. (sterile) 20 ML @ 300 mls/ hr IVP Q8HR GELA Rx#:[id number] Ofirmev 1,000 mg/100 ml 1,000 200 / 200 mg In 100 ml @ 400 mls/hr IVPB Q6HR GELA Rx#:[id number] Output: Estimated Blood Loss 20 / Wound Drainage Right Lower Abdomen Other: # Voids 1 - General physical appearance well developed, no distress, obese - Eyes normal ocular movement - ENT atraumatic, normocephalic - Neck Neck exam: no masses - Respiratory normal expansion, normal respiratory effort, clear to auscultation - Cardiovascular Cardiovascular exam: Present: RRR, no murmurs/rubs/gallops - Abdomen Abdomen: Present: bowel sounds present, tender, surgical scars Abdominal Tenderness: diffusely Hernia: none - Incision Incision: Present: clean and dry, erythema (as expected). Absent: draining, purulent - Neurologic CN 2-12 grossly intact - Musculoskeletal normal posture - Psychiatric speech is normal, memory intact - Labs 01/12/18 06:35 01/12/18 06:35 Diabetes panel 01/11/18 01/12/18 Range/Units 08:59 06:35 Sodium 131 L 134 L (136-145) mEq/L Potassium 3.8 4.3 (3.5-5.1) mEq/L Chloride 100 104 (98-107) mEq/L Carbon Dioxide 24 22 L (23-29) mEq/L BUN 10 13 (8-23) mg/dL Creatinine 0.83 0.93 (0.60-1.20) mg/dL Glucose 159 H 175 H (70-105) mg/dL Calcium 8.7 8.7 (8.6-10.3) mg/dL AST 10 L 34 (13-39) Units/L ALT 8 29 (7-52) Units/L Alkaline Phosphatase 111 H 91 (34-104) Units/L Albumin 3.7 3.3 L (3.5-5.7) g/dL Calcium panel 01/11/18 01/12/18 Range/Units 08:59 06:35 Calcium 8.7 8.7 (8.6-10.3) mg/dL Albumin 3.7 3.3 L (3.5-5.7) g/dL Pituitary panel 01/11/18 01/12/18 Range/Units 08:59 06:35 Sodium 131 L 134 L (136-145) mEq/L Potassium 3.8 4.3 (3.5-5.1) mEq/L Chloride 100 104 (98-107) mEq/L Carbon Dioxide 24 22 L (23-29) mEq/L BUN 10 13 (8-23) mg/dL Creatinine 0.83 0.93 (0.60-1.20) mg/dL Glucose 159 H 175 H (70-105) mg/dL Calcium 8.7 8.7 (8.6-10.3) mg/dL Adrenal panel 01/11/18 01/12/18 Range/Units 08:59 06:35 Sodium 131 L 134 L (136-145) mEq/L Potassium 3.8 4.3 (3.5-5.1) mEq/L Chloride 100 104 (98-107) mEq/L Carbon Dioxide 24 22 L (23-29) mEq/L BUN 10 13 (8-23) mg/dL Creatinine 0.83 0.93 (0.60-1.20) mg/dL Glucose 159 H 175 H (70-105) mg/dL Calcium 8.7 8.7 (8.6-10.3) mg/dL Total Bilirubin 0.9 0.5 (0.3-1.0) mg/dL AST 10 L 34 (13-39) Units/L ALT 8 29 (7-52) Units/L Alkaline Phosphatase 111 H 91 (34-104) Units/L Albumin 3.7 3.3 L (3.5-5.7) g/dL Consult Discharge Plan - Plan Additional Instructions: 1. No pushing, pulling, or lifting greater than 15 lbs for 2-4 weeks (depending upon procedure). 2. You may shower beginning today, but no tub baths, soaking, or swimming for 2 weeks. 3. You may resume driving when you are off narcotics and are safe to react in a car. 4. Take ibuprofen every 8 hours for discomfort. If this does not relieve discomfort, you may take the as needed Percocet. Take narcotics as directed. Do not take more narcotics then directed and do not share your narcotics with any other person. Do not drink alcohol while on narcotics. 5. Take stool softeners (Colace) or a water based laxative (Miralax) while taking narcotics. You may hold for loose stools. 6. Report any fevers greater than 100.5F, increase abdominal discomfort, drainage that looks like pus, increased redness or pain at the surgical site, or any vomiting. 7. Report any pain in the calves, shortness of breath, or rapid heartbeat. 8. Follow-up in the office as directed. 9. If you were prescribed antibiotics, do not stop them without talking to your provider. Referrals: Anselmo Borrero DO [Primary Care Provider] - Prescriptions: cefOXitin [Mefoxin] 2,000 mg IVPB Q8HR #1 vial dilTIAZem HCl [Diltiazem 24Hr ER] 120 mg PO DAILY #1 cap.er.24h
[2018-01-12] MEDS ORDERED: Diltiazem CD (24hr) 120 MG CAPSULE PO SCH (09:00)
[2018-01-12] MEDS ORDERED: FLUoxetine HCl Oral Soln 20 MG/5 ML UDC PO SCH (09:00)
[2018-01-12] MEDS ORDERED: Pantoprazole 40 MG VIAL IVP SCH (09:00)
--- NOTE | 2018-01-12 10:22 | Discharge Summary ---
<oBboMichaelGhulam W - Last Filed: 01/12/18 11:06> - NOTES TO OUTPATIENT PROVIDER Notes to Outpatient Provider: Drain check on Wednesday Orders not resulted at time of discharge: Pending orders 01/11/18 16:35 Surgical Pathology [PTH] Routine Date of Encounter: 01/12/18 Time of Encounter: 06:40 - Discharge Diagnosis (1) Acute cholecystitis Priority: Primary Status: Acute Comments: Pt received laporoscopic cholecystectomy and is recovering well. Appointment scheduled wednesday for Drain removal a)oxycodone/acetaminophen 5/325 mg 1 tab Q6 hours PRN for breakthrough pain #28 , b) ibuprofen 800 mg PO Q8 hours #42, c) Colace 100 mg BID (take while on narcotics; may hold for loose stool) #30, d) Zofran ODT 4 mg Q6H PRN for nausea #15. (2) Abdominal pain Priority: Secondary Status: Acute Comments: see above Qualifiers: Abdominal location: right upper quadrant Qualified Code(s): R10.11 - Right upper quadrant pain (3) GERD (gastroesophageal reflux disease) Priority: Secondary Status: Chronic Comments: continue home medications Qualifiers: Esophagitis presence: without esophagitis Qualified Code(s): K21.9 - Gastro -esophageal reflux disease without esophagitis (4) HTN (hypertension) Priority: Secondary Status: Chronic Comments: continue home medications Qualifiers: Hypertension type: essential hypertension Qualified Code(s): I10 - Essential (primary) hypertension General Surgery Exam Initial Vital Signs Temp Pulse Resp BP Pulse Ox 98.1 F 68 18 162/77 97 01/10/18 13:22 01/10/18 13:22 01/10/18 13:22 01/10/18 13:22 01/10/18 13:22 - General physical appearance well developed, well nourished, no distress, moderate pain - Eyes normal ocular movement - ENT atraumatic, normocephalic, CN 2-12 grossly intact - Respiratory normal expansion, normal respiratory effort, clear to auscultation - Cardiovascular Cardiovascular exam: Present: RRR, no murmurs/rubs/gallops - Abdomen Abdomen general surgery: Present: bowel sounds present, soft, tender Abdominal Tenderness: Present: RUQ Hernia: Present: none - Incision Incision: Present: clean and dry, intact, erythema - Integumentary Integumentary general surgery: Present: warm and dry - Neurologic Present: CN 2-12 grossly intact, normal coordination, normal sensation - Musculoskeletal Present: normal posture - Psychiatric Psychiatric general surgery: Present: appropriate, speech is normal, memory intact - Hospital Course Hospital course: Ms. Tran is a 62 year old female who presented to the [facility] on 01/10/18 with significant RUQ pain. the patinet was admitted to the hospital and a laporoscopic cholecystectomy was performed on 01/11/18. the patient tolerated the surgery well. The patient has recovered well from the surgery. While at the hospital the patient received routine labs, CXR, ECG, Abd US, Abd/pelvis CT, as well appropraite medications to manage her pain and medical conditions. - Time Spent with Patient Total time spent providing and/or coordinating discharge services: Greater than 30 minutes - Discharge Medications Prescriptions: OxyCODONE/APAP 5/325 [Percocet 5/325 MG] 1 each PO Q6HR PRN 7 Days #28 tablet PRN Reason: Pain Ibuprofen [Motrin] 800 mg PO Q8HR #42 tablet Ondansetron HCl [Zofran] 4 mg PO Q8HR PRN #15 tab PRN Reason: Nausea And Vomiting Docusate [Colace] 100 mg PO DAILY PRN #30 capsule PRN Reason: Constipation Home Medications: FLUoxetine HCl [Prozac] 20 mg PO DAILY 01/15/16 [History] Ferrous Sulfate 325 mg PO DAILY 01/15/16 [History] L. Acidophilus/Pectin, [place] [Acidophilus Probiotic Capsule] 1 cap PO DAILY [History] Pantoprazole Sodium [Protonix] 40 mg PO DAILY 01/15/16 [History] Aspirin [Lo-Dose Aspirin EC] 81 mg PO DAILY 01/10/18 [History] Losartan Potassium [Cozaar] 50 mg PO DAILY 01/10/18 [History] dilTIAZem HCl [Diltiazem 24Hr Cd] 120 mg PO DAILY 01/10/18 [History] Docusate [Colace] 100 mg PO DAILY PRN #30 capsule 01/12/18 [Rx] Ibuprofen [Motrin] 800 mg PO Q8HR #42 tablet 01/12/18 [Rx] Ondansetron HCl [Zofran] 4 mg PO Q8HR PRN #15 tab 01/12/18 [Rx] OxyCODONE/APAP 5/325 [Percocet 5/325 MG] 1 each PO Q6HR PRN 7 Days #28 tablet [Rx] Allergies/Adverse Reactions: 3 Allergy/AdvReac Type Severity Reaction Status Date / Time No Known Allergies Allergy Verified 01/10/18 13:25 Date of admission: 01/10/18 21:05 Primary care physician: Anselmo Borrero Discharging clinician: Ghulam Broussard Anticipated date of discharge: 01/12/18 Procedures and tests throughout hospitalization: Pt was admitted to hospital with acute cholecystitis. Received laproscopic cholecystectomy. CBC, BMP, urinalysis, ABD US, CT Labs on day of discharge: Labs from last 24 hours 01/12/18 01/12/18 01/11/18 06:35 06:35 11:43 WBC 12.1 H RBC 3.83 Hgb 11.6 D Hct 35.3 MCV 92.2 MCH 30.3 MCHC 32.9 RDW 12.9 Plt Count 214 MPV 9.5 Immature Gran % 0.4 Seg Neutrophils % 90.9 Lymphocytes % 7.0 Monocytes % 1.7 Eosinophils % 0.0 Basophils % 0.0 Neutrophils # 11.0 H Lymphocytes # 0.9 Monocytes # 0.2 Eosinophils # 0.0 Basophils # 0.0 Sodium 134 L Potassium 4.3 Chloride 104 Carbon Dioxide 22 L BUN 13 Creatinine 0.93 Est GFR ( Amer) > 60 Est GFR (Non-Af Amer) > 60 BUN/Creatinine Ratio 14 Glucose 175 H POC Glucose 141 H Calculated Osmolality 282 Calcium 8.7 Total Bilirubin 0.5 Direct Bilirubin 0.1 Indirect Bilirubin 0.4 AST 34 ALT 29 Alkaline Phosphatase 91 Serum Total Protein 6.5 Albumin 3.3 L Globulin 3.2 Albumin/Globulin Ratio 1.0 L - Patient Status Disposition: Home, Self-Care Condition: Good Functional capacity at discharge: independent ambulation Overall status at discharge: patient is back to baseline - Discharge Instructions Follow Up With: Juliana Correa CNP [Advanced Practice Nurse] - 01/14/18 9:45 am Anselmo Borrero, [Primary Care Provider] - Additional Instructions: 1. No pushing, pulling, or lifting greater than 15 lbs for 2-4 weeks (depending upon procedure). 2. You may shower beginning today, but no tub baths, soaking, or swimming for 2 weeks. 3. You may resume driving when you are off narcotics and are safe to react in a car. 4. Take ibuprofen every 8 hours for discomfort. If this does not relieve discomfort, you may take the as needed Percocet. Take narcotics as directed. Do not take more narcotics then directed and do not share your narcotics with any other person. Do not drink alcohol while on narcotics. 5. Take stool softeners (Colace) or a water based laxative (Miralax) while taking narcotics. You may hold for loose stools. 6. Report any fevers greater than 100.5F, increase abdominal discomfort, drainage that looks like pus, increased redness or pain at the surgical site, or any vomiting. 7. Report any pain in the calves, shortness of breath, or rapid heartbeat. 8. Follow-up in the office as directed. 9. If you were prescribed antibiotics, do not stop them without talking to your provider. - Diet and Activity Activity: increase activity as tolerated Diet: advance to your usual diet <Norma Lam - Last Filed: 01/12/18 18:26> Orders not resulted at time of discharge: Pending orders 01/11/18 16:35 Surgical Pathology [PTH] Routine Date of Encounter: 01/12/18 - Discharge Diagnosis (1) Leukocytosis Status: Acute Qualifiers: Leukocytosis type: unspecified Qualified Code(s): D72.829 - Elevated white blood cell count, unspecified (2) Acute cholecystitis Status: Acute General Surgery Exam Initial Vital Signs Temp Pulse Resp BP Pulse Ox 98.1 F 68 18 162/77 97 01/10/18 13:22 01/10/18 13:22 01/10/18 13:22 01/10/18 13:22 01/10/18 13:22 - Hospital Course Hospital course: Ms. Tran is a 62 year old female - Time Spent with Patient Total time spent providing and/or coordinating discharge services: Date of admission: 01/10/18 21:05 Primary care physician: Anselmo Borrero Labs on day of discharge: Labs from last 24 hours 01/12/18 01/12/18 06:35 06:35 WBC 12.1 H RBC 3.83 Hgb 11.6 D Hct 35.3 MCV 92.2 MCH 30.3 MCHC 32.9 RDW 12.9 Plt Count 214 MPV 9.5 Immature Gran % 0.4 Seg Neutrophils % 90.9 Lymphocytes % 7.0 Monocytes % 1.7 Eosinophils % 0.0 Basophils % 0.0 Neutrophils # 11.0 H Lymphocytes # 0.9 Monocytes # 0.2 Eosinophils # 0.0 Basophils # 0.0 Sodium 134 L Potassium 4.3 Chloride 104 Carbon Dioxide 22 L BUN 13 Creatinine 0.93 Est GFR ( Amer) > 60 Est GFR (Non-Af Amer) > 60 BUN/Creatinine Ratio 14 Glucose 175 H Calculated Osmolality 282 Calcium 8.7 Total Bilirubin 0.5 Direct Bilirubin 0.1 Indirect Bilirubin 0.4 AST 34 ALT 29 Alkaline Phosphatase 91 Serum Total Protein 6.5 Albumin 3.3 L Globulin 3.2 Albumin/Globulin Ratio 1.0 L - Attending Attestation Patient was seen by WILFREDO Goodman and discharged
[2018-01-12 11:25] VITALS: BP 119/71
[2018-01-12] MEDS: OXYCODONE Oral CONC 10 MG/0.5 ML ORAL.SYG SL PRN (15:09)
== END 2018-01-12 16:20 | disposition home or self-care (01) ==
LOC: 3ANU 13:15 → EMEROO 13:15 → 3ANU 21:21
PROVIDERS: ADMIT Surgery; ATTEND Surgery